=== PATIENT | male | born 1950 | race Caucasian/White ===

== ENCOUNTER 2022-09-29 14:30 | Outpatient (RCR) | payer OTHER, SELFPAY | END 2022-11-22 11:14 | disposition home or self-care (01) | LOC: ANHDMC 14:30 | DX: E11.9 Type 2 diabetes mellitus without complications (principal); Z71.89 Other specified counseling | CPT/HCPCS: G0109 ==

== ENCOUNTER 2022-12-23 15:15 | Outpatient (RCR) | payer MEDICARE, SELFPAY | END 2022-12-24 16:34 | disposition home or self-care (01) | LOC: ANHDMC 15:15 | DX: E11.9 Type 2 diabetes mellitus without complications (principal); Z71.89 Other specified counseling | CPT/HCPCS: G0109 ==